=== PATIENT | female | born 1970 ===

== ENCOUNTER 2020-11-11 19:12 | Emergency (ER) | payer BC ==
[2020-11-11] MEDS ORDERED: IBUPROFEN 600 MG TAB PO STA (19:31)
[2020-11-11] MEDS ORDERED: ONDANSETRON 4 MG ODT STARTER PACK 2 TAB BTL PO STA (19:31)
[2020-11-11] MEDS ORDERED: ACETAMINOPHEN TAB 325 MG TAB PO STA (19:31)
--- NOTE | 2020-11-11 19:49 | ED ---
Fever HPI - General Chief Complaint: Fever Stated Complaint: Fever,SOB Time Seen by Provider: 11/11/20 19:23 Source: patient Mode of arrival: ambulatory Limitations: no limitations - History of Present Illness Initial Comments: 50 year-old female patient presents to the emergency department for evaluation of fever, body aches, and nausea. States that symptoms started yesterday. States she has been quite fatigued. Reports very mild intermittent dry cough. Denies chest pain or shortness of breath. Denies vomiting or diarrhea. Denies any abdominal pain. Denies any hematuria, dysuria, urinary frequency, urinary urgency. States her temperature has been as high as 102F. She has not taken anything for fever today. She would like to be tested for COVID-19. Patient denies any recent rash, constipation, back pain, numbness, tingling, dizziness, weakness, headache, visual changes, or any other complaints. - Related Data Previous Rx's Medication Instructions Recorded Cephalexin [Keflex] 500 mg PO BID #14 cap 11/11/20 Allergies Allergy/AdvReac Type Severity Reaction Status Date / Time codeine Allergy Rash/Hives Verified 11/11/20 19:19 Review of Systems ROS Statement: Those systems with pertinent positive or pertinent negative responses have been documented in the HPI. ROS Other: All systems not noted in ROS Statement are negative. Past Medical History Past Medical History: No Reported History History of Any Multi-Drug Resistant Organisms: None Reported Past Surgical History: Section, Orthopedic Surgery Additional Past Surgical History / Comment(s): left knee acl, Past Psychological History: No Psychological Hx Reported Smoking Status: Never smoker Past Alcohol Use History: Rare Past Drug Use History: None Reported General Exam Limitations: no limitations General appearance: alert, in no apparent distress, other (Physical well- developed, well-nourished adult female patient in no acute distress. Vital signs upon presentation are temperature 101.7F, pulse 119, respirations 18, blood pressure 126/75, pulse ox 98% on room air.) Eye exam: Present: normal appearance, PERRL, EOMI. Absent: scleral icterus, conjunctival injection, periorbital swelling ENT exam: Present: normal exam, normal oropharynx, mucous membranes moist Respiratory exam: Present: normal lung sounds bilaterally. Absent: respiratory distress, wheezes, rales, rhonchi, stridor Cardiovascular Exam: Present: normal rhythm, tachycardia, normal heart sounds. Absent: systolic murmur, diastolic murmur, rubs, gallop, clicks GI/Abdominal exam: Present: soft, normal bowel sounds. Absent: distended, tenderness, guarding, rebound, rigid Neurological exam: Present: alert, oriented X3, CN II-XII intact Psychiatric exam: Present: normal affect, normal mood Skin exam: Present: warm, dry, intact, normal color. Absent: rash Course Vital Signs 11/11/20 11/11/20 19:15 21:19 Temperature 101.7 F H 98.6 F Pulse Rate 119 H 83 Respiratory 18 16 Rate Blood Pressure 126/75 100/63 O2 Sat by Pulse 98 97 Oximetry Medical Decision Making - Medical Decision Making 50-year-old female patient presents the emergency department today for evaluation of fever and body aches and fatigue for the last couple of days. Physical examination was unremarkable. No CVA tenderness. She tested negative for cold fluids we did labs which white blood cell count is 11.7 with neutrophils at 9.0. She had positive urinary tract infection. She will be given 1 dose of IV Rocephin. Discharge with antibiotics. Instructed to follow- up with her primary care physician for recheck in 1-2 days. Return parameters were discussed in detail. She verbalizes understanding and agrees with this plan. My attending is Dr. Acosta. - Lab Data Result diagrams: 11/11/20 21:05 11/11/20 21:05 Lab Results 11/11/20 11/11/20 11/11/20 Range/Units 19:56 21:05 21:05 WBC 11.7 H (3.8-10.6) k/uL RBC 4.15 (3.80-5.40) m/uL Hgb 13.1 (11.4-16.0) gm/dL Hct 37.6 (34.0-46.0) % MCV 90.6 (80.0-100.0) fL MCH 31.4 (25.0-35.0) pg MCHC 34.7 (31.0-37.0) g/dL RDW 12.3 (11.5-15.5) % Plt Count 229 (150-450) k/uL MPV 8.3 Neutrophils % 77 % Lymphocytes % 14 % Monocytes % 6 % Eosinophils % 1 % Basophils % 0 % Neutrophils # 9.0 H (1.3-7.7) k/uL Lymphocytes # 1.7 (1.0-4.8) k/uL Monocytes # 0.7 (0-1.0) k/uL Eosinophils # 0.1 (0-0.7) k/uL Basophils # 0.0 (0-0.2) k/uL Sodium 134 L (137-145) mmol/L Potassium 3.7 (3.5-5.1) mmol/L Chloride 104 (98-107) mmol/L Carbon Dioxide 22 (22-30) mmol/L Anion Gap 8 mmol/L BUN 10 (7-17) mg/dL Creatinine 0.66 (0.52-1.04) mg/dL Est GFR (CKD-EPI)AfAm >90 (>60 ml/min/1.73 sqM) Est GFR (CKD-EPI)NonAf >90 (>60 ml/min/1.73 sqM) Glucose 124 H (74-99) mg/dL Calcium 8.6 (8.4-10.2) mg/dL Total Bilirubin 1.3 (0.2-1.3) mg/dL AST 19 (14-36) U/L ALT 11 (4-34) U/L Alkaline Phosphatase 76 (38-126) U/L Total Protein 6.6 (6.3-8.2) g/dL Albumin 3.7 (3.5-5.0) g/dL Urine Color Urine Appearance (Clear) Urine pH (5.0-8.0) Ur Specific [place] (1.001-1.035) Urine Protein (Negative) Urine Glucose (UA) (Negative) Urine Ketones (Negative) Urine Blood (Negative) Urine Nitrite (Negative) Urine Bilirubin (Negative) Urine Urobilinogen (<2.0) mg/dL Ur Leukocyte Esterase (Negative) Urine RBC (0-5) /hpf Urine WBC (0-5) /hpf Urine WBC Clumps (None) /hpf Ur Squamous Epith Cells (0-4) /hpf Urine Bacteria (None) /hpf Urine Mucus (None) /hpf Coronavirus (PCR) Not Detected (Not Detectd) Influenza Type A RNA (Not Detectd) Influenza Type B (PCR) (Not Detectd) 11/11/20 11/11/20 Range/Units 21:05 21:20 WBC (3.8-10.6) k/uL RBC (3.80-5.40) m/uL Hgb (11.4-16.0) gm/dL Hct (34.0-46.0) % MCV (80.0-100.0) fL MCH (25.0-35.0) pg MCHC (31.0-37.0) g/dL RDW (11.5-15.5) % Plt Count (150-450) k/uL MPV Neutrophils % % Lymphocytes % % Monocytes % % Eosinophils % % Basophils % % Neutrophils # (1.3-7.7) k/uL Lymphocytes # (1.0-4.8) k/uL Monocytes # (0-1.0) k/uL Eosinophils # (0-0.7) k/uL Basophils # (0-0.2) k/uL Sodium (137-145) mmol/L Potassium (3.5-5.1) mmol/L Chloride (98-107) mmol/L Carbon Dioxide (22-30) mmol/L Anion Gap mmol/L BUN (7-17) mg/dL Creatinine (0.52-1.04) mg/dL Est GFR (CKD-EPI)AfAm (>60 ml/min/1.73 sqM) Est GFR (CKD-EPI)NonAf (>60 ml/min/1.73 sqM) Glucose (74-99) mg/dL Calcium (8.4-10.2) mg/dL Total Bilirubin (0.2-1.3) mg/dL AST (14-36) U/L ALT (4-34) U/L Alkaline Phosphatase (38-126) U/L Total Protein (6.3-8.2) g/dL Albumin (3.5-5.0) g/dL Urine Color Yellow Urine Appearance Cloudy H (Clear) Urine pH 6.5 (5.0-8.0) Ur Specific [place] 1.012 (1.001-1.035) Urine Protein 1+ H (Negative) Urine Glucose (UA) Negative (Negative) Urine Ketones Negative (Negative) Urine Blood Moderate H (Negative) Urine Nitrite Positive H (Negative) Urine Bilirubin Negative (Negative) Urine Urobilinogen 2.0 (<2.0) mg/dL Ur Leukocyte Esterase Large H (Negative) Urine RBC 9 H (0-5) /hpf Urine WBC >182 H (0-5) /hpf Urine WBC Clumps Few H (None) /hpf Ur Squamous Epith Cells 7 H (0-4) /hpf Urine Bacteria Many H (None) /hpf Urine Mucus Occasional H (None) /hpf Coronavirus (PCR) (Not Detectd) Influenza Type A RNA Not Detected (Not Detectd) Influenza Type B (PCR) Not Detected (Not Detectd) - Radiology Data Radiology results: report reviewed, image reviewed The x-ray of the chest is obtained. Impression by Dr. Dos Santos shows mild lingual atelectasis. Normal heart. Disposition Clinical Impression: UTI (urinary tract infection) Disposition: HOME SELF-CARE Condition: Good Instructions (If sedation given, give patient instructions): Urinary Tract Infection in Women (ED), Fever in Adults (ED) Additional Instructions: Increase fluids. Alternate Tylenol Motrin for fever control. Complete antibi otic prescription in full. Follow-up with the primary care physician for recheck in 1-2 days. Return for any new, worsening, or concerning symptoms. Prescriptions: Cephalexin [Keflex] 500 mg PO BID #14 cap Is patient prescribed a controlled substance at d/c from ED?: No Referrals: Nonstaff,Physician [Primary Care Provider] - 1-2 days Time of Disposition: 21:53
[2020-11-11] MEDS ORDERED: SODIUM CHLORIDE 0.9% 1,000 ML IV ONE (20:41)
--- NOTE | 2020-11-11 21:15 | XR ---
EXAMINATION TYPE: XR chest 2V DATE OF EXAM: 11/11/2020 COMPARISON: NONE HISTORY: Fever. Nausea. TECHNIQUE: 2 views FINDINGS: There is some linear density in the lingula left upper lobe. Heart and mediastinum are norm al. Other lung grimm are clear. There is no pleural effusion. There are no hilar masses. Bony thorax is intact. IMPRESSION: There is some mild lingula atelectasis. Normal heart.
[2020-11-11 21:18] LABS: Basophils % (A) 0 %; Eosinophils # (A) 0.1 k/uL (0-0.7); Eosinophils % (A) 1 %; HCT 37.6 % (34.0-46.0); HGB 13.1 gm/dL (11.4-16.0); Lymphocytes # (A) 1.7 k/uL (1.0-4.8); Lymphocytes % (A) 14 %; MCH 31.4 pg (25.0-35.0); MCHC 34.7 g/dL (31.0-37.0); MCV 90.6 fL (80.0-100.0); Mean Platelet Volume 8.3; Monocytes # (A) 0.7 k/uL (0-1.0); Monocytes % (A) 6 %; Neutrophils % (A) 77 %; Platelet Count 229 k/uL (150-450); RBC 4.15 m/uL (3.80-5.40); RDW 12.3 % (11.5-15.5); WBC 11.7 k/uL (3.8-10.6)
[2020-11-11 21:23] LABS: ALT 11 U/L (4-34); AST 19 U/L (14-36); African American GFR (CKD) >90 (>60 ml/min/1.73 sqM); Albumin 3.7 g/dL (3.5-5.0); Alkaline Phosphatase 76 U/L (38-126); Anion Gap 8 mmol/L; Blood Urea Nitrogen 10 mg/dL (7-17); Calcium 8.6 mg/dL (8.4-10.2); Carbon Dioxide 22 mmol/L (22-30); Chloride 104 mmol/L (98-107); Glucose 124 mg/dL (74-99); Non-African American GFR(CKD) >90 (>60 ml/min/1.73 sqM); Potassium 3.7 mmol/L (3.5-5.1); Sodium 134 mmol/L (137-145); Total Bilirubin 1.3 mg/dL (0.2-1.3); Total Protein 6.6 g/dL (6.3-8.2)
[2020-11-11 21:35] VITALS: BP 100/63; PULSE 83; RESP 16; TEMP 98.6
[2020-11-11 21:37] LABS: Appearance,Urine Cloudy (Clear); Bacteria,Urine Many /hpf; Bilirubin,Urine Negative (Negative); Blood,Urine Moderate (Negative); Color,Urine Yellow; Glucose,Urine (UA) Negative (Negative); Ketones,Urine Negative (Negative); Leukocyte Esterase,Urine Large (Negative); Mucus,Urine Occasional /hpf; Nitrite,Urine Positive (Negative); PH, Urine 6.5 (5.0-8.0); Protein,Urine 1+ (Negative); RBC,Urine 9 /hpf (0-5); Specific Gravity,Urine 1.012 (1.001-1.035); Squamous Epithelial Cell,Urine 7 /hpf (0-4); WBC,Urine >182 /hpf (0-5)
[2020-11-11] MEDS ORDERED: cefTRIAXone IN SWFI 1,000 MG/10 ML SYRINGE IVP STA (21:49)
== END 2020-11-11 22:14 | disposition home or self-care (01) ==
LOC: EC 19:12
DX: N39.0 Urinary tract infection, site not specified (principal); R06.02 Shortness of breath; R05 Cough; Z20.822 Contact with and (suspected) exposure to COVID-19; B96.20 Unspecified Escherichia coli [E. coli] as the cause of diseases classified elsewhere
CPT/HCPCS: 36415; 80053; 85025; 81001; 87040; 87086; 87077; 87186; 87502; 87635; 71046; 99285; 96374; 96361; J0696; S0119

== ENCOUNTER 2021-06-02 16:53 | Observation (INO) | payer BC ==
[2021-06-02] MEDS ORDERED: ASPIRIN 81 MG PO STA (19:12)
--- NOTE | 2021-06-02 19:33 | ED ---
General Adult HPI - General Chief complaint: Chest Pain Stated complaint: chest pain Time Seen by Provider: 06/02/21 19:03 Source: patient Mode of arrival: ambulatory Limitations: no limitations - History of Present Illness Initial comments: 51 year-old female patient presents to the emergency department for intermittent chest and back pain. Patient states it started yesterday morning. States usually when she is doing activity, she will have a tightening intense pain in her chest that then radiates between her shoulder blades. States that she feels short of breath when the pain comes on. Denies nausea or vomiting. States it lasts a few minutes and then resolves. 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 Cough or congestion. Denies any fever or chills. She denies any history of chest pain are cardiac conditions. She denies history of hypertension, di abetes, or family history of coronary artery disease. She denies taking any medication for her symptoms. - Related Data Previous Rx's Medication Instructions Recorded Cephalexin [Keflex] 500 mg PO BID #14 cap 11/11/20 Allergies Allergy/AdvReac Type Severity Reaction Status Date / Time codeine Allergy Rash/Hives Verified 06/02/21 17:14 Review of Systems ROS Statement: Those systems with pertinent positive or pertinent negative responses have been documented in the HPI. ROS Other: All systems not noted in ROS Statement are negative. Past Medical History Past Medical History: No Reported History History of Any Multi-Drug Resistant Organisms: None Reported Past Surgical History: Section, Orthopedic Surgery Additional Past Surgical History / Comment(s): left knee acl, Past Psychological History: No Psychological Hx Reported Smoking Status: Never smoker Past Alcohol Use History: Rare Past Drug Use History: None Reported General Exam Limitations: no limitations General appearance: alert, in no apparent distress, other (This is a well- developed, well-nourished adult female patient in no acute distress.) ENT exam: Present: normal exam, normal oropharynx, mucous membranes moist Respiratory exam: Present: normal lung sounds bilaterally. Absent: respiratory distress, wheezes, rales, rhonchi, stridor Cardiovascular Exam: Present: regular rate, normal rhythm, normal heart sounds. Absent: systolic murmur, diastolic murmur, rubs, gallop, clicks GI/Abdominal exam: Present: soft, normal bowel sounds. Absent: distended, tenderness, guarding, rebound, rigid Neurological exam: Present: alert, oriented X3, CN II-XII intact Psychiatric exam: Present: normal affect, normal mood Skin exam: Present: warm, dry, intact, normal color. Absent: rash Course Vital Signs 06/02/21 06/02/21 17:13 20:49 Temperature 98.4 F Pulse Rate 74 67 Respiratory 20 20 Rate Blood Pressure 143/91 135/90 O2 Sat by Pulse 100 100 Oximetry EKG Findings - EKG Comments: EKG Findings:: EKG obtained at 1716 shows normal sinus rhythm with a ventricular rate is 71, OK interval 136, QRS duration 86, QT 384, QTC 417. No evidence of ST elevation or depression. Medical Decision Making - Medical Decision Making 51-year-old female patient presents to the emergency department today for evaluation of intermittent, exertional chest pain that started yesterday. Physical examination did reveal clear equal lung sounds. No chest wall tenderness. Labs reviewed and were unremarkable. She had a negative d-dimer. Troponin 0.025. EKG was unremarkable. She will be admitted to the hospital for serial troponins and further evaluation by cardiology. She is agreeable with this plan. Case discussed with my attending Dr. Hyman. - Lab Data Result diagrams: 06/02/21 19:30 06/02/21 19:30 Lab Results 06/02/21 06/02/21 06/02/21 Range/Units 19:30 19:30 19:30 WBC 8.2 (3.8-10.6) k/uL RBC 4.56 (3.80-5.40) m/uL Hgb 14.2 (11.4-16.0) gm/dL Hct 41.7 (34.0-46.0) % MCV 91.4 (80.0-100.0) fL MCH 31.0 (25.0-35.0) pg MCHC 33.9 (31.0-37.0) g/dL RDW 12.7 (11.5-15.5) % Plt Count 343 (150-450) k/uL MPV 8.8 Neutrophils % 54 % Lymphocytes % 37 % Monocytes % 4 % Eosinophils % 3 % Basophils % 0 % Neutrophils # 4.4 (1.3-7.7) k/uL Lymphocytes # 3.1 (1.0-4.8) k/uL Monocytes # 0.4 (0-1.0) k/uL Eosinophils # 0.2 (0-0.7) k/uL Basophils # 0.0 (0-0.2) k/uL PT 10.4 (9.0-12.0) sec INR 1.0 (<1.2) APTT 26.9 (22.0-30.0) sec D-Dimer 0.36 (<0.60) mg/L FEU Sodium 138 (137-145) mmol/L Potassium 3.9 (3.5-5.1) mmol/L Chloride 107 (98-107) mmol/L Carbon Dioxide 23 (22-30) mmol/L Anion Gap 8 mmol/L BUN 13 (7-17) mg/dL Creatinine 0.71 (0.52-1.04) mg/dL Est GFR (CKD-EPI)AfAm >90 (>60 ml/min/1.73 sqM) Est GFR (CKD-EPI)NonAf >90 (>60 ml/min/1.73 sqM) Glucose 87 (74-99) mg/dL Calcium 9.1 (8.4-10.2) mg/dL Magnesium 2.1 (1.6-2.3) mg/dL Total Bilirubin 0.7 (0.2-1.3) mg/dL AST 20 (14-36) U/L ALT 14 (4-34) U/L Alkaline Phosphatase 76 (38-126) U/L Troponin I (0.000-0.034) ng/mL Total Protein 8.0 (6.3-8.2) g/dL Albumin 4.4 (3.5-5.0) g/dL Lipase 113 (23-300) U/L 06/02/ Range/Units 19:30 WBC (3.8-10.6) k/uL RBC (3.80-5.40) m/uL Hgb (11.4-16.0) gm/dL Hct (34.0-46.0) % MCV (80.0-100.0) fL MCH (25.0-35.0) pg MCHC (31.0-37.0) g/dL RDW (11.5-15.5) % Plt Count (150-450) k/uL MPV Neutrophils % % Lymphocytes % % Monocytes % % Eosinophils % % Basophils % % Neutrophils # (1.3-7.7) k/uL Lymphocytes # (1.0-4.8) k/uL Monocytes # (0-1.0) k/uL Eosinophils # (0-0.7) k/uL Basophils # (0-0.2) k/uL PT (9.0-12.0) sec INR (<1.2) APTT (22.0-30.0) sec D-Dimer (<0.60) mg/L FEU Sodium (137-145) mmol/L Potassium (3.5-5.1) mmol/L Chloride (98-107) mmol/L Carbon Dioxide (22-30) mmol/L Anion Gap mmol/L BUN (7-17) mg/dL Creatinine (0.52-1.04) mg/dL Est GFR (CKD-EPI)AfAm (>60 ml/min/1.73 sqM) Est GFR (CKD-EPI)NonAf (>60 ml/min/1.73 sqM) Glucose (74-99) mg/dL Calcium (8.4-10.2) mg/dL Magnesium (1.6-2.3) mg/dL Total Bilirubin (0.2-1.3) mg/dL AST (14-36) U/L ALT (4-34) U/L Alkaline Phosphatase (38-126) U/L Troponin I 0.025 (0.000-0.034) ng/mL Total Protein (6.3-8.2) g/dL Albumin (3.5-5.0) g/dL Lipase (23-300) U/L - Radiology Data Radiology results: report reviewed, image reviewed Two-view x-ray of the chest is obtained. Report was reviewed in its entirety. Impression by Dr. Dos Santos shows no active cardiopulmonary disease. Normal heart. There is clearing of the metal atelectasis compared to old exam. Disposition Clinical Impression: Chest pain Disposition: ADMITTED IP TO THIS [facility] Condition: Serious Referrals: Preston Fitch DO [Primary Care Provider] - 1-2 days Decision to Admit Reason: Admit from EC Decision Date: 06/02/21 Decision Time: 21:17
[2021-06-02 19:35] LABS: Basophils % (A) 0 %; Eosinophils # (A) 0.2 k/uL (0-0.7); Eosinophils % (A) 3 %; HCT 41.7 % (34.0-46.0); HGB 14.2 gm/dL (11.4-16.0); Lymphocytes # (A) 3.1 k/uL (1.0-4.8); Lymphocytes % (A) 37 %; MCHC 33.9 g/dL (31.0-37.0); MCV 91.4 fL (80.0-100.0); Mean Platelet Volume 8.8; Monocytes # (A) 0.4 k/uL (0-1.0); Monocytes % (A) 4 %; Neutrophils # (A) 4.4 k/uL (1.3-7.7); Neutrophils % (A) 54 %; Platelet Count 343 k/uL (150-450); RBC 4.56 m/uL (3.80-5.40); RDW 12.7 % (11.5-15.5); WBC 8.2 k/uL (3.8-10.6)
[2021-06-02 19:50] LABS: Partial Thromboplastin Time 26.9 sec (22.0-30.0); Prothrombin Time 10.4 sec (9.0-12.0)
[2021-06-02 19:51] LABS: ALT 14 U/L (4-34); AST 20 U/L (14-36); African American GFR (CKD) >90 (>60 ml/min/1.73 sqM); Albumin 4.4 g/dL (3.5-5.0); Alkaline Phosphatase 76 U/L (38-126); Anion Gap 8 mmol/L; Blood Urea Nitrogen 13 mg/dL (7-17); Calcium 9.1 mg/dL (8.4-10.2); Carbon Dioxide 23 mmol/L (22-30); Chloride 107 mmol/L (98-107); Glucose 87 mg/dL (74-99); Lipase 113 U/L (23-300); Magnesium 2.1 mg/dL (1.6-2.3); Non-African American GFR(CKD) >90 (>60 ml/min/1.73 sqM); Potassium 3.9 mmol/L (3.5-5.1); Sodium 138 mmol/L (137-145); Total Bilirubin 0.7 mg/dL (0.2-1.3)
--- NOTE | 2021-06-02 20:17 | XR ---
EXAMINATION TYPE: XR chest 2V DATE OF EXAM: 06/02/2021 COMPARISON: 11/11/2020 HISTORY: Fever TECHNIQUE: 2 view FINDINGS: Heart is normal. Lungs are clear of infiltrate. There is no heart failure. There are chest leads. Costophrenic angles are clear. IMPRESSION: No active cardiopulmonary disease. Normal heart. There is clearing of the minimal atelect asis compared to old exam.
[2021-06-02] MEDS ORDERED: NALOXONE 0.4 MG/ML 1 ML VIAL IV PRN (21:14)
[2021-06-02 22:37] LABS: Appearance,Urine Clear (Clear); Bilirubin,Urine Negative (Negative); Blood,Urine Negative (Negative); Color,Urine Yellow; Glucose,Urine (UA) Negative (Negative); Ketones,Urine Negative (Negative); Leukocyte Esterase,Urine Negative (Negative); Nitrite,Urine Negative (Negative); PH, Urine 7.5 (5.0-8.0); Protein,Urine Negative (Negative); Specific Gravity,Urine 1.022 (1.001-1.035); Urobilinogen,Urine <2.0 mg/dL (<2.0)
--- NOTE | 2021-06-03 00:42 | P.HPIM ---
History of Present Illness H&P Date: 06/02/21 Chief Complaint: Chest pain 51-year-old female no significant past medical history Patient comes in due to sudden onset chest pain that's been going on for the past 24 hours, she claims that morning she experienced some short upper chest chest pain radiating to the back described as 10 out of 10 sharp pain in severity and lasted couple minutes and resolved on its own not associated with any nausea vomiting shortness of breath loss of consciousness or profuse sweating denies any upper respiratory infection symptoms denies any sick contact She is on Bactrim 8 against Covid but not reporting any of Covid typical symptoms. 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 Denies any recent travel or hospitalization denies any history of blood clots or heart disease He also describes episodes of heart racing that wakes her up from sleep denies any associated nightmare anxiety or emotional distress. These are sporadic and associated with any other symptoms. Usually short-lived Patient denies any smoking and drinking or illegal drugs. She denies any premature cardiac history in the family In the ED initial workup was per much unremarkable patient admitted for cardiology evaluation Review of Systems Pertinent positives as noted in HPI. All other systems were reviewed and are negative Past Medical History Past Medical History: No Reported History History of Any Multi-Drug Resistant Organisms: None Reported Past Surgical History: Section, Orthopedic Surgery Additional Past Surgical History / Comment(s): left knee acl, Past Psychological History: No Psychological Hx Reported Smoking Status: Never smoker Past Alcohol Use History: Rare Past Drug Use History: None Reported - Past Family History Family Family Medical History: No Reported History Medications and Allergies Home Medications Medication Instructions Recorded Confirmed Type No Known Home Medications 06/02/21 06/02/21 History Allergies Allergy/AdvReac Type Severity Reaction Status Date / Time codeine Allergy Rash/Hives Verified 06/02/21 21:59 Physical Exam Vitals: Vital Signs Temp Pulse Resp BP Pulse Ox 06/02/21 23:30 65 20 135/87 06/02/21 22:11 67 18 136/87 100 06/02/21 20:49 67 20 135/90 100 06/02/21 17:13 98.4 F 74 20 143/91 100 Intake and Output 06/02/21 06/02/21 06/03/21 14:59 22:59 06:59 Other: Weight 68.039 kg Constitutional: No acute distress, conversant, pleasant Eyes: Anicteric sclerae, moist conjunctiva, Pupils equal round reactive to light ENMT: NC/AT Oropharynx clear, no erythema, or exudates Neck: Supple, FROM, no masses, or JVD No carotid bruits No thyromegaly Lungs: Clear to auscultation Clear to percussion Normal respiratory effort, no accessory muscle use Cardiovascular: Heart regular in rate and rhythm, No murmurs, gallops, or rubs No peripheral edema Abdominal: Soft Nontender, no guarding, rebound or rigidity Abdomen moving with respiration Normoactive bowel sounds No hepatomegaly, No splenomegaly No palpable mass No abdominal wall hernia noted Skin: Normal temperature, tone, texture, turgor No induration No subcutaneous nodules No rash, lesions No ulcers Extremities: No digital cyanosis No clubbing Pedal pulses intact and symmetrical Radial pulses intact and symmetrical No calf tenderness Psychiatric: Alert and oriented to person, place and time Appropriate affect fair judgement Neuro Muscles Strength 5/5 in all 4 extremities Sensation to light touch grossly present throughout Cranial nerves II-XII grossly intact No focal sensory deficits Lymphatics: no palpable cervical or supraclavicular , or inguinal lymph nodes Results CBC & Chem 7: 06/02/21 19:30 06/02/21 19:30 Assessment and Plan Assessment: Atypical chest pain rule out ACS Pain features are suggestive of musculoskeletal in origin Cardiac monitoring Monitor vital signs Cardiology evaluation Trend troponins Patient received aspirin Check lipid profile and A1c, check TSH Currently patient has no pain DVT prophylaxis heparin subcu 3 times a day Full code Anticipated length of stay less than 2 midnights
[2021-06-03] MEDS: SODIUM CHLORIDE 0.9% 1,000 ML IV SCH ×4 (01:54→22:13)
[2021-06-03] MEDS ORDERED: ENOXAPARIN 80 MG/0.8 ML SYRINGE SQ STA (08:52)
[2021-06-03] MEDS ORDERED: ASPIRIN 325 MG TAB PO SCH (09:00)
[2021-06-03] MEDS ORDERED: NITROGLYCERIN SL TABS 0.4 MG TAB SUBLINGUAL PRN ×2 (10:27→15:42)
[2021-06-03] MEDS ORDERED: ALPRAZolam 0.25 MG TAB PO PRN (10:27)
[2021-06-03] MEDS ORDERED: ASPIRIN 325 MG TAB PO STA (10:27)
[2021-06-03] MEDS ORDERED: ALPRAZolam 0.5 MG TAB PO PRN (10:27)
[2021-06-03] MEDS ORDERED: ATORVASTATIN 80 MG TAB PO STA (10:27)
--- NOTE | 2021-06-03 10:27 | P.CRDCN ---
History of Present Illness History of present illness: HISTORY OF PRESENTING ILLNESS This is a pleasant 51-year-old female with no significant past medical history. 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 We have been asked to see in consultation for chest pain. She states it first started on morning she woke up to take a shower and while she was getting things ready in the bathroom she noticed a pressure sensation in her back in between her shoulder blades that radiated through to her chest causing her to feel short of breath and mildly lightheaded. It persisted for about 15 minutes prompting her to abort taking a shower and go lay down in bed. When she lay down and her symptoms subsided. Throughout the day she took things easy with out much physical exertion. 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 It subsided when she sat down and rested. She went shopping with her daughter and while they were shopping and loading the car she had symptoms again. Last evening in the hospital for getting up to the bathroom she had chest discomfort again. Her symptoms are mostly associated with exertion and resolved with rest. DIAGNOSTICS EKG reveals sinus rhythm heart rate of 71 with poor R-wave progression. Telemetry tracings indicate sinus rhythm with no acute arrhythmia. Chest xray negative for an acute cardiopulmonary process. Laboratory reviewed, cardiac enzymes negative 3, d-dimer negative. She takes no daily cardiac medications. REVIEW OF SYSTEMS At the time of my exam: CONSTITUTIONAL: Denies fever or chills. CARDIOVASCULAR: Denies chest pain, shortness of breath, orthopnea, PND or palpitations. RESPIRATORY: Denies cough. GASTROINTESTINAL: Denies abdominal pain, diarrhea, constipation, nausea or vomiting. MUSCULOSKELETAL: Denies myalgias. NEUROLOGIC: Denies numbness, tingling, headache or weakness. ENDOCRINE: Denies fatigue, weight change, polydipsia or polyurina. GENITOURINARY: Denies burning, hematuria or urgency with micturation. HEMATOLOGIC: Denies history of anemia or bleeding. PHYSICAL EXAMINATION Blood pressure 119/75 heart rate 65 afebrile and maintaining oxygen saturation on room air. CONSTITUTIONAL: No apparent distress. HEENT: Head is normocephalic. Pupils are equal, round. Sclerae anicteric. Mucous membranes of the mouth are moist. No JVD. No carotid bruit. CHEST EXAMINATION: Lungs are clear to auscultation. No chest wall tenderness is noted on palpation or with deep breathing. HEART EXAMINATION: Regular rate and rhythm. S1, S2 heard. No murmurs, gallops or rub. ABDOMEN: Soft, nontender. EXTREMITIES: 2+ peripheral pulses, no lower extremity edema and no calf tenderness. NEUROLOGIC EXAMINATION: Patient is awake, alert and oriented x3. ASSESSMENT Unstable angina PLAN An acute coronary event has been ruled out. Obtain 2D echocardiogram and doppler study to assess cardiac structure and function. Recommend cardiac catheterization. Risks explained in detail along with alternative options. She is agreeable to proceed with above stated procedure. Give lovenox 70 mg once now. Lipid panel pending. Further recommendations to follow based on clinical course. Thank you kindly for this consultation. Nurse Practitioner note has been reviewed, I agree with a documented findings and plan of care. Patient was seen and examined. Past Medical History Past Medical History: No Reported History Additional Past Medical History / Comment(s): anemia History of Any Multi-Drug Resistant Organisms: None Reported Past Surgical History: Section, Orthopedic Surgery Additional Past Surgical History / Comment(s): left knee acl, uterine ablation Past Anesthesia/Blood Transfusion Reactions: No Reported Reaction Past Psychological History: No Psychological Hx Reported Smoking Status: Never smoker Past Alcohol Use History: Rare Past Drug Use History: None Reported - Past Family History Mother Family Medical History: Hypertension Brother(s) Additional Family Medical History / Comment(s): lupus Father Family Medical History: Cancer Additional Family Medical History / Comment(s): prostate CA Medications and Allergies Home Medications Medication Instructions Recorded Confirmed Type No Known Home Medications 06/02/21 06/02/21 History Allergies Allergy/AdvReac Type Severity Reaction Status Date / Time codeine Allergy Rash/Hives Verified 06/02/21 21:59 Physical Exam Vitals: Vital Signs Temp Pulse Pulse Resp BP BP Pulse Ox 06/03/21 07:00 97.6 F 65 18 119/75 99 06/03/21 01:23 98.3 F 68 18 144/98 06/02/21 23:30 65 20 135/87 06/02/21 22:11 67 18 136/87 100 06/02/21 20:49 67 20 135/90 100 06/02/21 17:13 98.4 F 74 20 143/91 100 Intake and Output 06/02/21 06/03/21 06/03/21 22:59 06:59 14:59 Other: # Voids 2 Weight 68.039 kg 68.039 kg Results 06/02/21 19:30 06/02/21 19:30 Cardiac Enzymes 06/02/21 06/02/21 06/02/21 Range/Units 19:30 19:30 23:50 AST 20 (14-36) U/L Troponin I 0.025 <0.012 (0.000-0.034) ng/mL 06/03/21 Range/Units 02:15 AST (14-36) U/L Troponin I <0.012 (0.000-0.034) ng/mL Coagulation 06/02/21 Range/Units 19:30 PT 10.4 (9.0-12.0) sec APTT 26.9 (22.0-30.0) sec CBC 06/02/21 Range/Units 19:30 WBC 8.2 (3.8-10.6) k/uL RBC 4.56 (3.80-5.40) m/uL Hgb 14.2 (11.4-16.0) gm/dL Hct 41.7 (34.0-46.0) % Plt Count 343 (150-450) k/uL Comprehensive Metabolic Panel 06/02/21 Range/Units 19:30 Sodium 138 (137-145) mmol/L Potassium 3.9 (3.5-5.1) mmol/L Chloride 107 (98-107) mmol/L Carbon Dioxide 23 (22-30) mmol/L BUN 13 (7-17) mg/dL Creatinine 0.71 (0.52-1.04) mg/dL Glucose 87 (74-99) mg/dL Calcium 9.1 (8.4-10.2) mg/dL AST 20 (14-36) U/L ALT 14 (4-34) U/L Alkaline Phosphatase 76 (38-126) U/L Total Protein 8.0 (6.3-8.2) g/dL Albumin 4.4 (3.5-5.0) g/dL Current Medications Generic Name Dose Route Start Last Admin Trade Name Freq PRN Reason Stop Dose Admin Aspirin 325 mg 06/03/21 09:00 06/03/21 07:09 Aspirin 325 Mg Tab PO 325 mg DAILY IVANA Administration Sodium Chloride 1,000 mls @ 75 mls/hr 06/03/21 00:45 06/03/21 01:54 Saline 0.9% IV 75 mls/hr .[id number] IVANA Administration Naloxone HCl 0.2 mg 06/02/21 21:14 Naloxone 0.4 Mg/Ml 1 Ml Vial IV Q2M PRN Opioid Reversal Intake and Output 06/02/21 06/03/21 06/03/21 22:59 06:59 14:59 Other: # Voids 2 Weight 68.039 kg 68.039 kg 06/02/21 19:30 06/02/21 19:30
[2021-06-03 10:54] LABS: Glucose,Whole Blood 85 mg/dL (75-99)
--- NOTE | 2021-06-03 11:00 | ECHOF ---
Referral Reason:unstable angina MEASUREMENTS -------- HEIGHT: 152.4 cm WEIGHT: 68.0 kg BP: RVIDd: 2.5 cm (< 3.3) IVSd: 0.9 cm (0.6 - 1.1) LVIDd: 4.8 cm (3.9 - 5.3) LVPWd: 0.8 cm (0.6 - 1.1) IVSs: 1.2 cm LVIDs: 3.5 cm LVPWs: 1.6 cm LA Diam: 3.2 cm (2.7 - 3.8) Ao Diam: 2.8 cm (2.0 - 3.7) AV Cusp: 1.6 cm (1.5 - 2.6) LA Diam: 3.3 cm (2.7 - 3.8) MV EXCURSION: 18.742 mm (> 18.000) MV EF SLOPE: 98 mm/s (70 - 150) EPSS: 0.5 cm MV E Damian: 0.65 m/s MV DecT: 227 ms MV A Damian: 0.51 m/s MV E/A Ratio: 1.28 RAP: 5.00 mmHg RVSP: 19.61 mmHg FINDINGS -------- Sinus rhythm. This was a technically good study. LV size, wall thickness and systolic function are normal, with an EF greater than 55%. The left kim tricular size is normal. The right ventricle is normal in size. The left atrial size is normal. The right atrial size is normal. The aortic valve is trileaflet, and appears structurally normal. No aortic stenosis or regurgitation. There is trace mitral regurgitation. Mild tricuspid regurgitation present. Right ventricular systolic pressure is normal at < 35 mmHg. There is no pulmonic regurgitation present. The aortic root size is normal. There is no pericardial effusion. CONCLUSIONS -------- 1. LV size, wall thickness and systolic function are normal, with an EF greater than 55%. 2. The left ventricular size is normal. 3. The right ventricle is normal in size. 4. The left atrial size is normal. 5. The right atrial size is normal. 6. The aortic valve is trileaflet, and appears structurally normal. No aortic stenosis or regurgitati on. 7. There is trace mitral regurgitation. 8. Mild tricuspid regurgitation present. 9. The aortic root size is normal. 10. There is no pericardial effusion. COLLECTIONS TECHNICIAN: Opal Moses RDCS
[2021-06-03] MEDS: SODIUM CHLORIDE 0.9% 1,000 ML in EMPTY BAG 1 BAG IV SCH (11:05)
[2021-06-03 11:48] LABS: Chol/HDL Ratio 4.38 Ratio; LDL Cholesterol,Calculated 123.8 mg/dL (0.0-131.0)
--- NOTE | 2021-06-03 13:09 | P.PN ---
Subjective Progress Note Date: 06/03/21 Patient reports chest pain on exertion for several weeks to months, also has a history of being woken up by palpitations. Her pain demonstrates typical features concerning for unstable angina. Objective - Vital Signs Vital signs: Vital Signs Temp 97.6 F 06/03/21 07:00 Pulse 65 06/03/21 07:00 Resp 18 06/03/21 07:00 BP 119/75 06/03/21 07:00 Pulse Ox 99 06/03/21 07:00 Intake & Output 06/02/21 06/03/21 06/03/21 18:59 06:59 18:59 Weight 68.039 kg 68.039 kg Other: # Voids 2 - Exam Gen: awake, alert HEENT: normocephalic, atraumatic, good hearing acuity, moist mucous membranes Resp: good air exchange, breathing comfortably with no accessory muscle use, clear to auscultation bilaterally CVS: good distal perfusion x 4, GI: soft, NTTP, ND : no SPT, no CVAT, morgan catheter not present MSK: no pitting edema, no clubbing Neuro: non-focal, moving all extremities Psych: cooperative, euthymic mood - Labs CBC & Chem 7: 06/02/21 19:30 06/02/21 19:30 Assessment and Plan Assessment: Unstable angina -Admit to inpatient telemetry -Cardiology consult -Aspirin, statin -Lovenox -Metoprolol -Lipid panel, TSH, A1c -Angiogram planned today Patient is a full code
[2021-06-03] MEDS ORDERED: LIDOCAINE 1% INJ 10MG/ML (20 ML MDV) ONE (14:09)
[2021-06-03] MEDS ORDERED: VERAPAMIL 2.5 MG/ML 2 ML AMP ONE ×2 (14:09→15:30)
[2021-06-03] MEDS ORDERED: HEPARIN SODIUM 1,000 UN/ML (10ML VL) ONE (14:09)
[2021-06-03] MEDS ORDERED: IV FLUID CONTINUATION 800 ML IV ONE (14:35)
[2021-06-03] MEDS: MIDAZOLAM 2 MG/2 ML VIAL IV ONE ×2 (14:42→15:12)
[2021-06-03] MEDS ORDERED: LIDOCAINE 1% INJ 10MG/ML (20 ML MDV) SQ ONE (14:44)
[2021-06-03] MEDS ORDERED: HYDROmorphone 0.5 MG/0.5 ML SYRINGE IVP ONE (14:49)
[2021-06-03] MEDS: VERAPAMIL SYRINGE (5 MG/10 ML) INTRAARTER ONE ×2 (14:50→15:20)
[2021-06-03] MEDS: HEPARIN SODIUM 1,000 UN/ML (10ML VL) IV ONE ×2 (14:51→15:14)
[2021-06-03] MEDS ORDERED: CLOPIDOGREL 75 MG TAB ONE (15:27)
[2021-06-03] MEDS ORDERED: IOPAMIDOL-370 100ML BTL INJ ONE ×2 (15:28→15:38)
[2021-06-03] MEDS ORDERED: NITROGLYCERIN 1000MCG/10ML SYRINGE INTRACORON ONE (15:33)
[2021-06-03] MEDS ORDERED: CLOPIDOGREL 75 MG TAB PO ONE (15:35)
[2021-06-03] MEDS ORDERED: RX INFO: IV CONTRAST WAS GIVEN 1 EACH MISC MISCELLANE PRN (15:42)
[2021-06-03] MEDS ORDERED: ZOLPIDEM 5 MG TAB PO PRN (15:42)
[2021-06-03] MEDS ORDERED: MAG HYDROX/AL HYDROX/SIMETH 30 ML CUP PO PRN (15:42)
[2021-06-03] MEDS ORDERED: ATROPINE SULFATE 0.1 MG/ML 10ML SYRINGE IV PRN (15:42)
[2021-06-03 16:01] VITALS: RESP 16
--- NOTE | 2021-06-03 16:23 | CC ---
CARDIAC CATHETERIZATION REPORT DATE OF SERVICE: 06/03/2021. PROCEDURE: 1. Left heart catheterization and coronary angiography. 2. PTCA and stenting of proximal LAD with a drug-eluting stent. Moderate conscious sedation time was 56 minutes. Patient was administered Versed. Oxygen saturation, hemodynamics and EKG were monitored closely. CLINICAL INFORMATION: Mrs. Latasha Jones is a 51-year-old lady who has no significant past medical history. She does not smoke. 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 She experienced discomfort in the chest suggestive of angina, had no significant troponin elevation, but there were precordial subtle ST-segment changes and therefore she was advised cardiac cath after giving her Lovenox 70 mg subcutaneously, and she was pain- free when I began the procedure. PROCEDURE NOTE: Under local anesthesia and strict aseptic precautions, a 6-Filipino introducer was placed in the right radial artery. Using a JL3.5 and JR4 catheters I performed coronary angiography and the same right Sonja catheter was used to check LV pressure, but LV gram was not performed. There was a significant amount of spasm when I did the procedure. Following the procedure, I noted that there was a significant lesion in the LAD, very proximal location, after a couple of small septal branches. I advised intervention and performed this at the same time with a 15 mm long 4.0 caliber drug- eluting stent. Excellent angiographic result was achieved. The sheath was then taken out and TR band/Vasc band applied as per protocol, and saturation in the fingers of the right hand was 100%. Patient tolerated the procedure well without complications. CARDIAC CATHETERIZATION FINDINGS: RIGHT CORONARY ARTERY: Dominant vessel. No significant disease. Distally bifurcates into a larger PLV, smaller PDA. Minor irregularities. No significant disease. LEFT MAIN CORONARY ARTERY: Short, patent vessel free of significant disease that trifurcates into LAD, circumflex and ramus intermedius. Left main itself is free of significant disease. LEFT ANTERIOR DESCENDING CORONARY ARTERY: Good-caliber vessel extends along the anterior wall, gives off two small septal branches, and then there is a 90% lesion in the mid/proximal LAD, after which a good-sized diagonal branch comes and then the LAD runs all the way to the apex and curves over the apex to supply the inferoapical portion of the left ventricle. The LAD is a large-caliber vessel, has a 90% lesion in the proximal/mid portion. RAMUS INTERMEDIUS: Fair-caliber vessel, good distribution, runs laterally, bifurcates into two branches distally has minor irregularities. No significant disease. LEFT POSTERIOR CIRCUMFLEX CORONARY ARTERY: Nondominant vessel of good caliber, gives off a distal posterolateral branch and left atrial circumflex which is a large branch, has no significant disease. Left ventricular pressures were obtained but LV gram was not performed. FINAL IMPRESSION: This patient has a right-dominant system, normal filling pressures, no gradient. Left ventricular end-diastolic pressure was about 10 mmHg. LAD has a proximal/mid 90% lesion. Circumflex, ramus and RCA are free of significant disease. RECOMMENDATIONS: I recommended PCI of proximal/mid LAD and proceeded to perform this in the same setting. PERCUTANEOUS CORONARY INTERVENTION PROCEDURE DETAILS: I used a JL3.0 guide catheter to cannulate the left coronary artery, a run-through wire to cross the lesion, a 2.5 caliber 12 mm long NC Trek balloon to pre-dilate the lesion. I then deployed a 4.0 caliber 15 mm long Xience stent at 14 atmospheres. Patient had chest pain and precordial ST elevation. She received additional 2500 units of heparin. She had already received Lovenox 70 mg subcutaneously 5 hours before the procedure. ACT was 264. She received 600 mg of Plavix. Excellent angiographic result was achieved without complication. She was sent to the room in stable condition. Results were discussed with the patient and family members, specifically her . MMODL / IJN: [id number] /
[2021-06-03] MEDS: METOPROLOL TARTRATE 25 MG TAB PO SCH (20:32)
[2021-06-03] MEDS: LOSARTAN 25 MG TAB PO SCH (20:32)
[2021-06-03] MEDS ORDERED: ATORVASTATIN 80 MG TAB PO SCH (21:00)
[2021-06-03] MEDS ORDERED: ATORVASTATIN 40 MG TAB PO SCH (21:00)
[2021-06-03] MEDS ORDERED: METOPROLOL TARTRATE 12.5 MG TAB PO SCH (21:00)
[2021-06-04] MEDS: SODIUM CHLORIDE 0.9% 1,000 ML in EMPTY BAG 1 BAG IV SCH (00:31)
[2021-06-04] MEDS: SODIUM CHLORIDE 0.9% 1,000 ML IV SCH ×2 (05:04→05:54)
[2021-06-04 06:32] LABS: Basophils % (A) 1 %; Eosinophils # (A) 0.1 k/uL (0-0.7); Eosinophils % (A) 1 %; HCT 38.2 % (34.0-46.0); HGB 12.8 gm/dL (11.4-16.0); Lymphocytes # (A) 2.8 k/uL (1.0-4.8); Lymphocytes % (A) 31 %; MCH 31.5 pg (25.0-35.0); MCHC 33.5 g/dL (31.0-37.0); MCV 93.9 fL (80.0-100.0); Mean Platelet Volume 8.1; Monocytes # (A) 0.5 k/uL (0-1.0); Monocytes % (A) 5 %; Neutrophils # (A) 5.4 k/uL (1.3-7.7); Neutrophils % (A) 60 %; Platelet Count 264 k/uL (150-450); RBC 4.07 m/uL (3.80-5.40); RDW 12.7 % (11.5-15.5)
[2021-06-04 06:41] LABS: African American GFR (CKD) >90 (>60 ml/min/1.73 sqM); Anion Gap 7 mmol/L; Blood Urea Nitrogen 9 mg/dL (7-17); Calcium 8.7 mg/dL (8.4-10.2); Carbon Dioxide 19 mmol/L (22-30); Chloride 109 mmol/L (98-107); Glucose 92 mg/dL (74-99); Non-African American GFR(CKD) >90 (>60 ml/min/1.73 sqM); Potassium 4.3 mmol/L (3.5-5.1); Sodium 135 mmol/L (137-145)
[2021-06-04] MEDS ORDERED: HEPARIN SODIUM,PORCINE 10,000 UNIT in SODIUM CHLORIDE 0.9% 1,000 ML IRRIGATION PRN (07:00)
[2021-06-04] MEDS ORDERED: HEPARIN SODIUM,PORCINE 2,500 UNIT in SODIUM CHLORIDE 0.9% 250 ML IRRIGATION PRN (07:00)
[2021-06-04 07:07] VITALS: BP 140/71; PULSE 63; TEMP 98.3
[2021-06-04] MEDS: LOSARTAN 25 MG TAB PO SCH (07:08)
[2021-06-04] MEDS: METOPROLOL TARTRATE 25 MG TAB PO SCH (07:08)
[2021-06-04] MEDS ORDERED: ASPIRIN 81 MG PO SCH (09:00)
[2021-06-04] MEDS ORDERED: CLOPIDOGREL 75 MG TAB PO SCH (09:00)
--- NOTE | 2021-06-04 09:45 | P.PN ---
Subjective HISTORY OF PRESENTING ILLNESS This is a pleasant 51-year-old female with no significant past medical history. 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 We have been asked to see in consultation for chest pain. She states it first started on morning she woke up to take a shower and while she was getting things ready in the b athroom she noticed a pressure sensation in her back in between her shoulder blades that radiated through to her chest causing her to feel short of breath and mildly lightheaded. It persisted for about 15 minutes prompting her to abort taking a shower and go lay down in bed. When she lay down and her symptoms subsided. Throughout the day she took things easy with out much physical exertion. 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 It subsided when she sat down and rested. She went shopping with her daughter and while they were shopping and loading the car she had symptoms again. Last evening in the hospital for getting up to the bathroom she had chest discomfort again. Her symptoms are mostly associated with exertion and resolved with rest. 06/04/2021 Pt seen and examined sitting up eating breakfast. She denies any further symptoms of chest pain. Breathing is stable. Blood pressure 140/71 heart rate 63 afebrile maintaining oxygen saturation on room air. Repeat EKG this morning unremarkable. Laboratory data reviewed, CBC unremarkable, sodium 135, potassium 4.3 and creatinine 0.51. PHYSICAL EXAMINATION CONSTITUTIONAL: No apparent distress. HEENT: Head is normocephalic. Pupils are equal, round. Sclerae anicteric. Mucous membranes of the mouth are moist. No JVD. No carotid bruit. CHEST EXAMINATION: Lungs are clear to auscultation. No chest wall tenderness is noted on palpation or with deep breathing. HEART EXAMINATION: Regular rate and rhythm. S1, S2 heard. No murmurs, gallops or rub. EXTREMITIES: 2+ peripheral pulses, no lower extremity edema and no calf tenderness. Right radial access site soft, nontender with no evidence of hemat nisa, ecchymosis, bleeding and strong distal pulses. ASSESSMENT Unstable angina Coronary artery disease status post PCI to the LAD PLAN Stable for discharge on current medical regimen. Cardiac medications will be sent to the pharmacy with refills. Postprocedure instructions discussed in detail with the patient. Follow-up in the office with Dr. Macdonald next week Saturday. Nurse Practitioner note has been reviewed, I agree with a documented findings and plan of care. Patient was seen and examined. Objective - Vital Signs Vital signs: Vital Signs Temp 98.3 F 06/04/21 07:00 Pulse 63 06/04/21 07:00 Resp 16 06/04/21 07:00 BP 140/71 06/04/21 07:00 Pulse Ox 100 06/04/21 07:00 Intake & Output 06/03/21 06/04/21 06/04/21 18:59 06:59 18:59 Intake Total 400 Balance 400 Intake: IV 400 Other: Voiding Method Toilet Toilet # Voids 2 1 - Labs CBC & Chem 7: 06/04/21 05:34 06/04/21 05:34 Labs: Abnormal Lab Results - Last 24 Hours (Table) 06/04/21 Range/Units 05:34 Sodium 135 L (137-145) mmol/L Chloride 109 H (98-107) mmol/L Carbon Dioxide 19 L (22-30) mmol/L Creatinine 0.51 L (0.52-1.04) mg/dL
--- NOTE | 2021-06-04 17:20 | P.DS ---
Providers Date of admission: 06/02/21 21:14 Expected date of discharge: 06/04/21 Attending physician: Linda Bojorquez MD Consults: 06/02/21 21:16 Consult Physician Routine Consulting Provider: Cardiology Grant Consult Reason/Comments: Chest pain Do you want consulting provider notified?: Yes 06/03/21 15:42 Consult Physician Routine Consulting Provider: Cardiology Grant Consult Reason/Comments: Post Interventional patient Do you want consulting provider notified?: Already Contacted Primary care physician: Preston Fitch DO Hospital Course: 51-year-old female no significant past medical history presented due to sudden onset chest pain. Unstable angina CAD s/p PCI to LAD -Admitted to inpatient telemetry. Cardiology consulted. Pt started on ASA/Statin, and given shot of lovenox. Pts chest pain was typical in nature prompting same day angiogram which demonstrated 90% mid-LAD lesion which was stented and she was then plavix loaded with 600mg. Pt recovered well following the procedure and was watched overnight to ensure no complications. Discharged on ASA, plavix, lipitor, losartan, and metoprolol. Pt to f/u with PCP and cardiology. Assessment: Gen: awake, alert HEENT: normocephalic, atraumatic, good hearing acuity, moist mucous membranes Resp: good air exchange, breathing comfortably with no accessory muscle use, clear to auscultation bilaterally CVS: good distal perfusion x 4, GI: soft, NTTP, ND : no SPT, no CVAT, morgan catheter not present MSK: no pitting edema, no clubbing Neuro: non-focal, moving all extremities Psych: cooperative, euthymic mood Patient Condition at Discharge: Good Plan - Discharge Summary Discharge Rx Participant: No New Discharge Prescriptions: New Aspirin 81 mg PO DAILY tab Losartan [Cozaar] 25 mg PO DAILY #90 tab Atorvastatin [Lipitor] 80 mg PO HS #90 tab Metoprolol Tartrate [Lopressor] 25 mg PO BID #180 tab Clopidogrel [Plavix] 75 mg PO DAILY #90 tab Discharge Medication List Aspirin 81 mg PO DAILY tab 06/04/21 [Rx] Atorvastatin [Lipitor] 80 mg PO HS #90 tab 06/04/21 [Rx] Clopidogrel [Plavix] 75 mg PO DAILY #90 tab 06/04/21 [Rx] Losartan [Cozaar] 25 mg PO DAILY #90 tab 06/04/21 [Rx] Metoprolol Tartrate [Lopressor] 25 mg PO BID #180 tab 06/04/21 [Rx] Follow up Appointment(s)/Referral(s): Mumtaz Macdonald MD [STAFF PHYSICIAN] - 1 Week Preston Fitch DO [Primary Care Provider] - 1-2 days Patient Instructions/Handouts: *Surgery [facility] - After Heart Catheterization - 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
== END 2021-06-04 10:58 | disposition home or self-care (01) ==
LOC: EC 16:53 → 6NMEDSUR 21:14
PROVIDERS: ADMIT Internal Medicine; ATTEND Internal Medicine
DX: I25.110 Atherosclerotic heart disease of native coronary artery with unstable angina pectoris (principal); Z20.822 Contact with and (suspected) exposure to COVID-19; Z86.2 Personal history of diseases of the blood and blood-forming organs and certain disorders involving the immune mechanism; Z88.5 Allergy status to narcotic agent; Z98.891 History of uterine scar from previous surgery; Z98.890 Other specified postprocedural states; Z82.49 Family history of ischemic heart disease and other diseases of the circulatory system; Z80.42 Family history of malignant neoplasm of prostate; Z84.89 Family history of other specified conditions
CPT/HCPCS: 96372; 99285; 36415; 93005; 93306; 93458; 85379; 80053; 80048; 80061; 84443; 83690; 83735; 84484 ×2; 85025 ×2; 85610; 85730; 81003; 83036; 87635; 71046; 99152; 99153 ×3; G0378 ×3; C9600; C1769 ×3; C1887 ×2; C1894; C1725; C1874; J2250; J2001; J1650; J1644; J1170; Q9967

== ENCOUNTER 2023-05-01 09:59 | Emergency (ER) | payer BC ==
[2023-05-01] MEDS ORDERED: DEXAMETHASONE SOD PHOSPHATE 10 MG/ML 1 ML VIAL IM STA (10:46)
[2023-05-01] MEDS ORDERED: KETOROLAC 15 MG/ML 1 ML VIAL IM STA (10:46)
--- NOTE | 2023-05-01 10:57 | ED ---
Extremity Problem HPI - General Chief complaint: Extremity Problem,Nontraumatic Stated complaint: arm pain-post flu vaccine Time Seen by Provider: 05/01/23 10:18 Source: patient, RN notes reviewed Mode of arrival: ambulatory Limitations: no limitations - History of Present Illness Initial comments: This is a 53-year-old female who presents to the emergency department for left arm pain. Patient received the influenza vaccine on 04/23. Within a couple of days, she started to develop severe pain to the left shoulder and is now having difficulty moving it. She has taken Tylenol with no relief in symptoms. She went to urgent care a few days ago and was advised to go to the emergency department to rule out a blood clot. She went to the emergency department at [facility] and had an ultrasound of the left upper extremity and an x-ray revealing no irregularities or evidence of a blood clot. States that the symptoms are not getting any better and she is really struggling to move the arm at this point. MD Complaint: extremity pain - Related Data Previous Rx's Medication Instructions Recorded Aspirin 81 mg PO DAILY tab 06/04/21 Atorvastatin [Lipitor] 80 mg PO HS #90 tab 06/04/21 Clopidogrel [Plavix] 75 mg PO DAILY #90 tab 06/04/21 Losartan [Cozaar] 25 mg PO DAILY #90 tab 06/04/21 Metoprolol Tartrate [Lopressor] 25 mg PO BID #180 tab 06/04/21 methocarbamoL [Robaxin-750] 1,500 mg PO TID PRN #30 tab 05/01/23 predniSONE 50 mg PO DAILY 5 Days #5 tab 05/01/23 Allergies Allergy/AdvReac Type Severity Reaction Status Date / Time codeine Allergy Rash/Hives Verified 06/02/21 21:59 Review of Systems ROS Statement: Those systems with pertinent positive or pertinent negative responses have been documented in the HPI. ROS Other: All systems not noted in ROS Statement are negative. Past Medical History Past Medical History: No Reported History Additional Past Medical History / Comment(s): anemia History of Any Multi-Drug Resistant Organisms: None Reported Past Surgical History: Section, Orthopedic Surgery Additional Past Surgical History / Comment(s): left knee acl, uterine ablation Past Anesthesia/Blood Transfusion Reactions: No Reported Reaction Past Psychological History: No Psychological Hx Reported Smoking Status: Never smoker Past Alcohol Use History: Rare Past Drug Use History: None Reported - Past Family History Mother Family Medical History: Hypertension Brother(s) Additional Family Medical History / Comment(s): lupus Father Family Medical History: Cancer Additional Family Medical History / Comment(s): prostate CA General Exam Limitations: no limitations General appearance: alert, in no apparent distress Head exam: Present: atraumatic, normocephalic, normal inspection Respiratory exam: Present: normal lung sounds bilaterally. Absent: respiratory distress, wheezes, rales, rhonchi, stridor Cardiovascular Exam: Present: regular rate, normal rhythm, normal heart sounds. Absent: systolic murmur, diastolic murmur, rubs, gallop, clicks Extremities exam: Present: other (Tenderness to palpation in the area of the left rotator cuff. No swelling, erythema, or deformities. Limited range of motion secondary to pain. 2+ radial pulses. Capillary refill less than 1 second.) Neurological exam: Present: alert, oriented X3, CN II-XII intact Psychiatric exam: Present: normal affect, normal mood Skin exam: Present: warm, dry, intact, normal color. Absent: rash Course Vital Signs 05/01/23 05/01/23 10:12 11:49 Temperature 98 F 98.0 F Pulse Rate 62 58 L Respiratory 18 16 Rate Blood Pressure 148/88 130/84 O2 Sat by Pulse 98 99 Oximetry Medical Decision Making - Medical Decision Making This is a 53-year-old female who presents to the emergency department for left shoulder pain. Was pt. sent in by a medical professional or institution? @ -No Did you speak to anyone other than the patient for history? @ -No Did you review nursing and triage notes? @ -Yes, and I agree, it is accurate with regards to the patient's symptoms. Were old charts reviewed? @ -No Differential Diagnosis? @ -Differential Musculoskeletal: Muscular strain, contusion, ligament sprain, fracture, arthritis, septic arthritis, bursitis, cellulitis, muscle spasm, nerve compression, DVT, arterial occlusion, herpes zoster, electrolyte abnormality, tumor.... This is not meant to be in all inclusive list EKG interpreted by me (3pts min.)? @ -Not obtained X-rays interpreted by me (1pt min.)? @ -Not obtained CT interpreted by me (1pt min.)? @ -Not obtained U/S interpreted by me (1pt. min.)? @ -Not obtained What testing was considered but not performed? (CT, X-rays, U/S, labs)? Why? @ -None What meds were considered but not given? Why? @ -None Did you discuss the management of the patient with other professionals? @ -No Did you reconcile home meds? @ -No Was smoking cessation discussed for >3mins.? @ -No Was critical care preformed (if so, how long)? @ -No Were there social determinants of health that impacted care today? How? (Homelessness, low income, unemployed, alcoholism, drug addiction, transportation, low edu. Level, literacy, decrease access to med. care, [facility], rehab)? @ -No Was there de-escalation of care discussed even if they declined? (Discuss DNR or withdrawal of care, Hospice)? @ -No What co-morbidities impacted this encounter? (DM, HTN, Smoking, COPD, CAD, Cancer, CVA, Hep., AIDS, mental health diagnosis, sleep apnea, morbid obesity)? @ -None Was patient admitted / discharged? @ -Discharged. Toradol administered in the emergency department. Based on the description of the patient's symptoms, lack of external findings, and normal previous imaging, I suspect that this is related to SIRVA (shoulder injury related to vaccine administration). 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 Current recommendations advised that some patients get relief with steroids. She was subsequently given a prescription for a five-day course of prednisone. Given that she did feel some tightness with this as well, she was also given a prescription for Robaxin. Otherwise advised follow-up with her primary care provider. Undiagnosed new problem with uncertain prognosis? @ -None Drug Therapy requiring intensive monitoring for toxicity (Heparin, Nitro, Insulin, Cardizem)? @ -None Were any procedures done? @ -None Diagnosis/symptom? @ -SIRVA, left shoulder pain Acute, or Chronic, or Acute on Chronic? @ -Acute Uncomplicated (without systemic symptoms) or Complicated (systemic symptoms)? @ -Uncomplicated Side effects of treatment? @ -None Exacerbation, Progression, or Severe Exacerbation] @ -Not applicable Poses a threat to life or bodily function? @ -Yes, this is impacting her ability to use the left arm. Return precautions reviewed in depth, the patient is instructed to return to the emergency department with any new, worsening, or concerning symptoms. Patient verbalized understanding. This case was discussed in detail with the attending ED physician, Dr. Taylor. Presentation, findings, and treatment plan discussed in detail as well. Disposition Clinical Impression: Shoulder injury related to vaccine administration (SIRVA), Left shoulder pain Disposition: HOME SELF-CARE Instructions (If sedation given, give patient instructions): Shoulder Pain (ED) Additional Instructions: Return to the emergency department with any new, worsening, or concerning symptoms. Take the prednisone daily for 5 days. You may take this with Tylenol. After finishing the prednisone, you may take itox-iie-jktosms anti- inflammatories such as ibuprofen. You can take the Robaxin as 1-2 tablets up to 3-4 times daily to help with pain and tightness. Be aware that this may make you drowsy and you should avoid driving or operating machinery when taking this. Follow up with your primary care provider in 1-2 days. Prescriptions: predniSONE 50 mg PO DAILY 5 Days #5 tab methocarbamoL [Robaxin-750] 1,500 mg PO TID PRN #30 tab PRN Reason: Pain Is patient prescribed a controlled substance at d/c from ED?: No Referrals: Preston Fitch DO [Primary Care Provider] - 1-2 days
[2023-05-01 12:05] VITALS: BP 130/84; PULSE 58; RESP 16; TEMP 98
== END 2023-05-01 11:49 | disposition home or self-care (01) ==
LOC: EC 09:59
DX: M79.602 Pain in left arm (principal); T50.Z95A Adverse effect of other vaccines and biological substances, initial encounter; Z88.5 Allergy status to narcotic agent
CPT/HCPCS: 99283; 96372 ×2; J1100; J1885